=== PATIENT | female | born 1995 ===

== ENCOUNTER 2017-01-05 15:40 | Emergency (ER) | payer OTHER ==
[~2017-01-05] VITALS: Ht 157.5 cm; Wt 54.0 kg
[2017-01-05 15:43] VITALS: BP 132/69; PULSE 120; TEMP 36.7; O2SAT 95; Ht 157.5 cm; Wt 54.0 kg
[2017-01-05] MEDS ORDERED: IBUPROFEN 600 MG TAB PO STA (15:54)
[2017-01-05] MEDS ORDERED: BCPILLS PO (16:12)
--- NOTE | 2017-01-05 16:22 | DIAGNOSTIC IMAGING REPORT ---
LEFT ANKLE MIN 3 VIEWS ROUTINE CLINICAL HISTORY: Left ankle pain status post trauma COMPARISON: None. DISCUSSION: No fractures or dislocations are visualized. The ankle mortise appears intact on these nonstress views. IMPRESSION: No fractures or dislocations identified. Electronically signed by: Zen Echeverria M.D. 01/05/2017 4:20 PM Dictated Date/Time: 01/05/2017 4:20 PM
--- NOTE | 2017-01-05 16:43 | EMERGENCY ROOM VISIT NOTE ---
ED Visit Note First contact with patient: 15:47 Chief Complaint: LEFT Ankle Injury History of Present Illness: This patient is a 21-year-old female who presents to the Emergency Department this evening for evaluation of their left Ankle Injury. Patient states that they injured the ankle while stepping awkwardly on a bench. They report moderate pain over the lateral aspect of the ankle after inverting the ankle. Pain is worse with ambulation. They deny any numbness or tingling into the distal extremity including the toes. They deny any pain extending into the affected foot or leg. Patient reports no previous fractures of the affected ankle. Patient rates her current discomfort as an 8/10. Patient has tried nothing for their pain. Medications: No current medications. Allergies: Shellfish PMH: No pertinent past medical history. 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 ROS: All pertinent positive and negative review of systems are appropriately documented in the History of Present Illness. Physical Exam: VITAL SIGNS - Vital signs and nursing notes were reviewed. GENERAL - 21-year-old female appearing her stated age and in noticeable discomfort throughout the exam. MUSCULOSKELETAL - LEFT ankle without erythema, edema, and ecchymosis. Moderate tenderness to palpation appreciated over the lateral malleolus. No tenderness extending into the foot or up the leg. +4/5 strength appreciated LEFT versus right secondary to patient discomfort. Pt with near full AROM at affected joint. ANTERIOR DRAWER TEST: Unremarkable. EVERSION TEST: Unremarkable. INVERSION TEST: Positive reproduction of pain. SQUEEZE TEST: Unremarkable. NEUROLOGIC/VASCULAR - Neurovascularly intact distally with +3/5 dorsalis pedis pulses palpated bilaterally. Normal sensation to light and sharp touch appreciated distally. IMAGING: LEFT ANKLE MIN 3 VIEWS ROUTINE CLINICAL HISTORY: Left ankle pain status post trauma COMPARISON: None. DISCUSSION: No fractures or dislocations are visualized. The ankle mortise appears intact on these nonstress views. IMPRESSION: No fractures or dislocations identified. ED Course: Patient was seen and evaluated by myself. Patient was provided an ice pack for comfort. Patient was provided Motrin for their complaint of pain. X-rays were obtained of the affected ankle. Imaging results as above. Images were discussed and reviewed with the patient who acknowledges understanding. Patient was provided a Gel Ankle Splint and Crutches for their comfort. Patient will utilize [id number]-[id number] medication for pain control at home. Patient educated on worrisome symptoms for return visit to the emergency department. Patient with follow-up with their primary care provided in 4-5 days if their symptoms are not improving. Patient discharged to home in good condition. Impression: LEFT Ankle Sprain Discharge Instructions: You have been treated in the Emergency Department for your LEFT Ankle Sprain. For pain control, you can use the following dysh-wos-pczwprl medicines (if >12 yo): - Regular strength (325mg/tab) Tylenol (acetaminophen) 2 tabs every 4-6 hours as needed. Do not exceed 12 tablets in a 24 hour period. Avoid taking more than 4 grams (4000 mg) of Tylenol per day. This includes any other sources of acetaminophen you may take on a regular basis. - Regular strength (200 mg/tab) Advil (ibuprofen) 1-2 tabs every 4-6 hours as needed. Do not exceed a dose of 3200 mg per day. If this is a recent injury (<24 hrs), ice can be applied to the area of pain for the first 3 days to help decrease pain and inflammation. Please use the crutches and ankle splint until you are able to ambulate without discomfort. You can continue to use the ankle splint for the next 1-2 weeks to help with ankle stability. Follow-up with your primary care provider or Orthopedic Surgeon in 4-5 days if your symptoms are not improving despite the treatment plan outlined above. Return to the Emergency Department if your current symptoms worsen despite treatment course outlined above, or if you develop any of the following symptoms : intractable pain despite aforementioned treatment course or new onset of numbness or tingling of the foot. Current/Historical Medications Scheduled Control Pills ( Control Pills), 1 TAB PO DAILY Allergies Coded Allergies: Shellfish (Verified Allergy, Unknown, Unknown, 01/05/17) Vital Signs Date Time Temp Pulse Resp B/P Pulse Ox O2 Delivery O2 Flow Rate FiO2 01/05/17 15:43 36.7 120 16 132/69 95 Room Air Medications Administered Medications (Trade) Dose Ordered Sig/Anu Route Start Time Stop Time Status Last Admin Dose Admin Ibuprofen (Motrin Tab) 600 mg NOW STAT PO 01/05/17 15:54 01/05/17 15:55 DC 01/05/17 16:05 600 MG Departure Information Impression Primary Impression: Left ankle sprain Dispostion Home / Self-Care Condition GOOD Referrals No Doctor, Assigned (PCP) Patient Instructions Ankle Sprain, [facility] Additional Instructions You have been treated in the Emergency Department for your LEFT Ankle Sprain. For pain control, you can use the following [id number] medicines (if >12 yo): - Regular strength (325mg/tab) Tylenol (acetaminophen) 2 tabs every 4-6 hours as needed. Do not exceed 12 tablets in a 24 hour period. Avoid taking more than 4 grams (4000 mg) of Tylenol per day. This includes any other sources of acetaminophen you may take on a regular basis. - Regular strength (200 mg/tab) Advil (ibuprofen) 1-2 tabs every 4-6 hours as needed. Do not exceed a dose of 3200 mg per day. If this is a recent injury (<24 hrs), ice can be applied to the area of pain for the first 3 days to help decrease pain and inflammation. Please use the crutches and ankle splint until you are able to ambulate without discomfort. You can continue to use the ankle splint for the next 1-2 weeks to help with ankle stability. Follow-up with your primary care provider or Orthopedic Surgeon in 4-5 days if your symptoms are not improving despite the treatment plan outlined above. Return to the Emergency Department if your current symptoms worsen despite treatment course outlined above, or if you develop any of the following symptoms : intractable pain despite aforementioned treatment course or new onset of numbness or tingling of the foot. Problem Qualifiers Primary Impression: Left ankle sprain Encounter type: initial encounter Involved ligament of ankle: unspecified ligament Qualified Codes: S93.402A - Sprain of unspecified ligament of left ankle, initial encounter
== END 2017-01-05 16:51 | disposition home or self-care (01) ==
LOC: C.EDB 15:42 → C.EDD 16:51
DX: S93.402A Sprain of unspecified ligament of left ankle, initial encounter (principal); X58.XXXA Exposure to other specified factors, initial encounter; Z79.3 Long term (current) use of hormonal contraceptives